=== PATIENT | female | born 1960 | race Caucasian/White ===

== ENCOUNTER 2022-07-26 06:08 | Inpatient (IN) ==
--- NOTE | 2022-07-07 15:53 | PAT Medication Instructions ---
Medication Instructions Date of Service July 07, 2022 Home Medications acetaminophen 500 mg tablet 500 mg PO BID PRN carvedilol 12.5 mg tablet 12.5 mg PO BID cholecalciferol (vitamin D3) 50 mcg (2,000 unit) capsule (Vitamin D3) 50 mcg PO QAM esomeprazole magnesium 40 mg capsule,delayed release (Nexium) 40 mg PO HS fluoxetine 40 mg capsule 40 mg PO QAM ibuprofen 200 mg tablet 200 - 400 mg PO TID PRN liraglutide 0.6 mg/0.1 mL (18 mg/3 mL) subcutaneous pen injector (Victoza 2-Griffin) 1.2 mg subcut QAM lisinopril 2.5 mg tablet 2.5 mg PO HS omega-3 fatty acids 1,000 mg PO QAM simvastatin 40 mg tablet 40 mg PO HS zinc 50 mg tablet 50 mg PO QAM Continue as directed liraglutide 0.6 mg/0.1 mL (18 mg/3 mL) subcutaneous pen injector (Victoza 2-Griffin) 1.2 mg subcut QAM ASK your surgeon for instructions ibuprofen 200 mg tablet 200 - 400 mg PO TID PRN STOP taking 2 weeks before surgery omega-3 fatty acids 1,000 mg PO QAM DO NOT take the morning of surgery cholecalciferol (vitamin D3) 50 mcg (2,000 unit) capsule (Vitamin D3) 50 mcg PO QAM zinc 50 mg tablet 50 mg PO QAM Take morning of surgery With a small sip of water, OTHERWISE NOTHING TO EAT OR DRINK AFTER MIDNIGHT: acetaminophen 500 mg tablet 500 mg PO BID PRN(if needed) carvedilol 12.5 mg tablet 12.5 mg PO BID fluoxetine 40 mg capsule 40 mg PO QAM Take evening before surgery acetaminophen 500 mg tablet 500 mg PO BID PRN(if needed) carvedilol 12.5 mg tablet 12.5 mg PO BID esomeprazole magnesium 40 mg capsule,delayed release (Nexium) 40 mg PO HS lisinopril 2.5 mg tablet 2.5 mg PO HS simvastatin 40 mg tablet 40 mg PO HS Other Notes If you have any questions please call us at [phone] or [phone] or or [phone]
--- NOTE | 2022-07-12 09:05 | Anesthesiology Consultation ---
Date of Service July 12, 2022 Assessment & Plan (1) Encounter for pre-operative examination: - COVID screening: Per assessment on 07/12: No known COVID-19 positive contacts or current COVID-19 related symptoms. Travel screen negative. Patient vaccinated. At surgeon discretion if preop Covid testing being done. - Check [facility] AM DOS Chart Review Chart Review: Acceptable Risk for Surgery and Patient seen in Pre Admission Testing Teaching & Discussion Pre-Anesthesia Teaching/Discussion Notes: Instructed NPO after midnight before surgery,except medications with 15 cc of water. Medication instructions provided according to the PAT guidelines. History Surgery Operation Date: 07/26/22 09:35 Proposed Procedures p L5-S1 Decompression and Fusion, Spinal Cord Monitoring - Art Richardson, Height/Weight Height: 5 ft 7 in Weight: 118.3 kg Allergies Allergy/AdvReac Type Severity Reaction Status Date / Time No Known Allergies Allergy Verified 07/01/22 15:08 Medications Home Medications Medication Instructions Recorded Confirmed Last Taken acetaminophen 500 mg tablet 500 mg PO BID PRN Pain 07/01/22 07/01/22 Unknown carvedilol 12.5 mg tablet 12.5 mg PO BID 07/01/22 07/01/22 Unknown cholecalciferol (vitamin D3) 50 50 mcg PO QAM 07/01/22 07/01/22 Unknown mcg (2,000 unit) capsule (Vitamin D3) esomeprazole magnesium 40 mg 40 mg PO HS 07/01/22 07/01/22 Unknown capsule,delayed release (Nexium) fluoxetine 40 mg capsule 40 mg PO QAM 07/01/22 07/01/22 Unknown ibuprofen 200 mg tablet 200 - 400 mg PO TID PRN Pain 07/01/22 07/01/22 Unknown liraglutide 0.6 mg/0.1 mL (18 mg/3 1.2 mg subcut QAM 07/01/22 07/01/22 Unknown mL) subcutaneous pen injector (Victoza 2-Griffin) lisinopril 2.5 mg tablet 2.5 mg PO HS 07/01/22 07/01/22 Unknown omega-3 fatty acids 1,000 mg PO QAM 07/01/22 07/01/22 Unknown simvastatin 40 mg tablet 40 mg PO HS 07/01/22 07/01/22 Unknown zinc 50 mg tablet 50 mg PO QAM 07/01/22 07/01/22 Unknown Past Medical History Medical History Anxiety Generalized Chronic back pain Chronic kidney disease Stage 2 - follows with [facility] Nephrology Degenerative disc disease Diabetes mellitus, type 2 NIDDM Fatty liver GERD (gastroesophageal reflux disease) History of COVID-19 04/2022 - loss of smell > resolved Hx of gastric ulcer Hyperlipidemia Hypertension Kidney stones MVP (mitral valve prolapse) Pt reports being told 15+ years ago (she states more recent cardiac testing did not show any valvular disease/regurgitation). No murmur noted at PAT visit 07/12/22* Sinus tachycardia Previously evaluated by cardio (Dr. Guthrie)- pt reports beta august is for HTN as well as hx ST. Now monitored by PCP, no recent issues, SR on recent EKG 05/26/22 Exercise / Class Metabolic Activity II 4-5 Yardwork/Stairs/Walk up hill (one FS (no CP, no SOB)) Past Family History Family History Other No family history of adverse response to anesthesia Past Surgical History Surgical History H/O lithotripsy ESWL (x2) History of cardiac cath ~2011 ([facility]) > no stents 5+ years ago (pt reports done at [facility] but no records of prior cardiac cath per facility) > no stents or significant findings per pt History of cholecystectomy History of colonoscopy History of esophagogastroduodenoscopy (EGD) History of total knee replacement bilateral Nausea and vomiting after administration of anesthetic agent S/P ear surgery BMT with bilateral ear patches ([facility] 04/2022) S/P epidural steroid injection S/P laparoscopic hysterectomy with BSO Past Anesthesia History No Hx of Anesthesia Complications (except PONV) and No Family Hx of Anesthesia Complications History of PONV History of PONV and Hx of Motion Sickness Social History Smoking Status: Former smoker tobacco type: cigarettes Smoking End Date: Quit 2005 Hx Alcohol Use: Yes alcohol intake frequency: holidays/special occasions only Hx Substance Use: No substance use type: does not use Review of Systems Remote hx of palpitations- well controlled on beta august. Patient denies chest pain, shortness of breath, dyspnea on exertion, fever, chills, cough, wheezing. Physical Exam Vital Signs VITALS BP 124/72 P 75 TEMP 98.3 SP02 96%RA RESP 16 PHYSICAL Full cervical extension range of motion. Full TMJ range of motion. TMD 4 finger breaths Mallampati Score 1 Dentition: full dentures upper/lower Lungs: clear throughout to auscultation Cardiac: regular rate and rhythm, no murmurs noted Spine: normal Carotid arteries: negative bruit Extremities: no edema Lab Results Anesthesia Preop Results Results Anesthesia Widget: WBC 7.05 K/ul (4.8-10.8) 07/12/22 Hgb 12.7 g/dl (12.0-16.0) 07/12/22 Hct 37.8 % (34.1-44.9) 07/12/22 Plt 174 K/uL (130-400) 07/12/22 Na 142 mmol/L (136-145) 07/12/22 K 4.0 mmol/L (3.5-5.1) 07/12/22 Cl 107 mmol/L (98-107) 07/12/22 CO2 30 mmol/L (21-32) 07/12/22 BUN 13 mg/dl (6-23) 07/12/22 Creat 0.78 mg/dl (0.6-1.2) 07/12/22 Glucose Level 101 mg/dl (70-99(Fasting)) H 07/12/22 PT 10.3 Seconds (9.0-12.0) 07/12/22 PTT 26.7 Seconds (21.0-31.0) 07/12/22 INR 1.0 (0.9-1.1) 07/12/22 HA1c 5.7 % (4.5-5.6) H 07/12/22 Urine Color Yellow 07/12/22 Urine Appearance Clear (Clear) 07/12/22 Urine pH 6.0 (4.5-7.5) 07/12/22 Urine Specific [place] 1.014 (1.000-1.030) 07/12/22 Urine Protein Negative (Negative) 07/12/22 Urine Glucose (UA) Negative (Negative) 07/12/22 Urine Ketones Negative (Negative) 07/12/22 Urine Blood Negative (Negative) 07/12/22 Urine Nitrite Negative (Negative) 07/12/22 Urine Bilirubin Negative (Negative) 07/12/22 Urine Urobilinogen Negative (Negative) 07/12/22 Urine Leukocyte Esterase Negative (Negative) 07/12/22 Blood Type A Positive 07/12/22 Antibody Screen NEGATIVE 07/12/22 Testing Electrocardiogram Date: 05/26/22 SR at 78bpm. Possible LAE. Chest X-Ray Date: 07/12/22 FINDINGS: Cardiomediastinal and hilar silhouettes are within normal limits. No pneumothorax, pleural effusion, airspace consolidation or overt pulmonary edema. Surgical clips of the upper abdomen. Degenerative changes of the shoulders and spine. IMPRESSION: No acute process. COVID-19 Risk Screen Screening Information COVID-19 Screen Date: 07/12/22 Exposure 21 Days Family/Household +COVID Last 21 Days: No Exposure 10 Days Any COVID Exposure Last 10 Days: No Symptoms Last 10 Days Experienced COVID Sx Last 10 Days: No + COVID 0-90 Days COVID + in Last 0-90 Days: No
[~2022-07-26 06:08] MED LIST: ACETAMINOPHEN 500 MG TAB PO SCH; CeleBREX 200 MG CAP PO SCH; GABAPENTIN 600 MG DOSE PO SCH; LR 15ML/HR IV SCH
[2022-07-26] MEDS ORDERED: MIDAZOLAM HCL 1 MG/ML 2ML VIAL ONE (06:57)
[2022-07-26] MEDS ORDERED: fentaNYL citrate 100 MCG/2 ML VIAL ONE (06:57)
[2022-07-26] MEDS ORDERED: DEXAMETHASONE SOD INJ 4 MG/ML VIAL ONE (06:57)
[2022-07-26] MEDS ORDERED: HYDROmorphone INJ 2 MG/ML SYR/VIAL ONE (06:57)
[2022-07-26] MEDS ORDERED: PROPOFOL IV EMULSION 10 MG/ML 20 ML VIAL IV ONE (06:57)
[2022-07-26] MEDS ORDERED: LIDOCAINE 2% 20 MG/ML 5 ML SYR IV ONE (06:57)
[2022-07-26] MEDS ORDERED: GLYCOPYRROLATE 0.2 MG/ML VIAL ONE (06:57)
[2022-07-26] MEDS ORDERED: NEOSTIGMINE METHYLSULFATE 1 MG/ML 10ML VIAL ONE (06:57)
[2022-07-26] MEDS ORDERED: ONDANSETRON INJ 2 MG/ML 2 ML VIAL ONE ×2 (06:57→11:07)
[2022-07-26] MEDS ORDERED: BUPIVACAINE/EPINEPHRINE 0.25% 1:200,000 30 ML VIAL ONE (07:21)
[2022-07-26] MEDS ORDERED: ceFAZolin 330 MG/ML 1 GM VIAL ONE (07:21)
--- NOTE | 2022-07-26 07:40 | History & Physical Bridge Note ---
Date of Service July 26, 2022 History & Physical Bridge Note I have examined the patient, reviewed the History & Physical and in the interval since the performance of the History & Physical I have noted the following changes of clinical significance: no changes noted
--- NOTE | 2022-07-26 07:41 | History & Physical Report ---
Date of Service July 26, 2022 Assessment & Plan (1) Neurogenic claudication due to lumbar spinal stenosis: Plan: L5-S1 decompression and fusion History of Present Illness Chief Complaint: Back and leg pain Primary Care Provider: Camilo Black DO This is a 62-year-old female presents with chronic persistent back and leg pain after failing course of nonoperative care is here for surgical invention. Allergies Allergy/AdvReac Type Severity Reaction Status Date / Time No Known Allergies Allergy Verified 07/26/22 06:27 Home Medications Medication Instructions Recorded Confirmed Type acetaminophen 500 mg tablet 500 mg PO BID PRN Pain 07/01/22 07/26/22 History carvedilol 12.5 mg tablet 12.5 mg PO BID 07/01/22 07/26/22 History cholecalciferol (vitamin D3) 50 50 mcg PO QAM 07/01/22 07/26/22 History mcg (2,000 unit) capsule (Vitamin D3) esomeprazole magnesium 40 mg 40 mg PO HS 07/01/22 07/26/22 History capsule,delayed release (Nexium) fluoxetine 40 mg capsule 40 mg PO QAM 07/01/22 07/26/22 History ibuprofen 200 mg tablet 200 - 400 mg PO TID PRN Pain 07/01/22 07/26/22 History liraglutide 0.6 mg/0.1 mL (18 mg/3 1.2 mg subcut QAM 07/01/22 07/26/22 History mL) subcutaneous pen injector (Victoza 2-Griffin) lisinopril 2.5 mg tablet 2.5 mg PO HS 07/01/22 07/26/22 History omega-3 fatty acids 1,000 mg PO QAM 07/01/22 07/26/22 History simvastatin 40 mg tablet 40 mg PO HS 07/01/22 07/26/22 History zinc 50 mg tablet 50 mg PO QAM 07/01/22 07/26/22 History Past Med/Surg History Medical History Anxiety Generalized Chronic back pain Chronic kidney disease Stage 2 - [facility] Degenerative disc disease Diabetes mellitus, type 2 NIDDM Fatty liver GERD (gastroesophageal reflux disease) History of COVID-19 04/2022 - loss of smell > resolved Hx of gastric ulcer Hyperlipidemia Hypertension Kidney stones MVP (mitral valve prolapse) Pt reports being told 15+ years ago (she states more recent cardiac testing did not show any valvular disease/regurgitation). No murmur noted at PAT visi t 07/12/22* Sinus tachycardia Previously evaluated by cardio (Dr. Guthrie)- pt reports beta august is for HTN as well as hx ST. Now monitored by PCP, no recent issues, SR on recent EKG 05/26/22 Surgical History H/O lithotripsy ESWL (x2) History of cardiac cath ~2011 ([facility]) > no stents 5+ years ago (pt reports done at [facility] but no records of prior cardiac cath per facility) > no stents or significant findings per pt History of cholecystectomy History of colonoscopy History of esophagogastroduodenoscopy (EGD) History of total knee replacement bilateral Nausea and vomiting after administration of anesthetic agent S/P ear surgery BMT with bilateral ear patches ([facility] 04/2022) S/P epidural steroid injection S/P laparoscopic hysterectomy with BSO Family History Other No family history of adverse response to anesthesia Social History Smoking Status: Former smoker Smoking End Date: Quit 2005; Second Hand Exposure: No; Tobacco Cessation Education Requested by Patient: No Hx Alcohol Use: Yes Hx Substance Use: No Preferred Language: Zimbabwean Communication Ability: Effective Grant Manager Required: No Beliefs That Will Affect Care: None Current Living Situation: Spouse Other Information That Helps Us Care for You: No Feels Safe at Home: Yes Safety Concerns: Feels Safe At This Time Assistive Devices: Denture - Upper and Denture - Lower Physical Exam Physical Exam: Patient is alert and oriented Heart regular rhythm Lungs clear Results & Data Results & Data ([facility]) Vital Signs (Past 12 Hours) Vital Signs Temp Pulse Resp BP Pulse Ox O2 Del Method 07/26/22 06:30 36.5 C 90 20 136/83 96 Room Air
[2022-07-26] MEDS ORDERED: HYDROmorphone INJ 2 MG/ML SYR/VIAL IV PRN (07:45)
[2022-07-26] MEDS ORDERED: PROMETHAZINE HCL 6.25 MG in SODIUM CHLORIDE 0.9% 50 ML IV PRN (07:45)
[2022-07-26] MEDS ORDERED: ONDANSETRON INJ 2 MG/ML 2 ML VIAL IV PRN ×2 (07:45→12:02)
[2022-07-26] MEDS ORDERED: ePHEDrine sulfate 50 MG/ML AMP IV PRN (07:45)
[2022-07-26] MEDS ORDERED: ATROPINE SULFATE 0.1 MG/ML 10ML SYR IV PRN (07:45)
[2022-07-26] MEDS ORDERED: PHENYLEPHRINE HCL 10 MG/ML VIAL ONE (09:29)
[2022-07-26] MEDS ORDERED: FLOSEAL HEMOSTATIC MATRIX 10ML TOP ONE (09:36)
--- NOTE | 2022-07-26 09:45 | Operative Report ---
Post Operative Report Pre & Post Diagnosis Operation Date: 07/26/22 07:45 Pre-Op Diagnosis: Neurogenic Claudication due to Lumbar Spinal Stenosis Spondylolisthesis L5-S1 Morbid obesity Post-Op Diagnosis: Same I identified the patient and participated in the time-out.: Yes Procedure Operation Date: 07/26/22 07:45 Actual Procedures #1 lumbar decompression bilateral medial facetectomies and foraminotomies L4-L5 L5-S1. #2 posterior spinal fusion L5-S1. #3 placement posterior instrumentation L5-S1. #4 interbody fusion L5-S1. #5 placement of Spira 14 x 26 mm cage at L5-S1. #6 placement locally harvested morselized autograft in the posterior gutters. #7 placement of I factor combined with V toss in interbody space and posterior lateral gutters. Surgeon Art Richardson, DO School Psychologist Mary Butler Estimated Blood Loss 100 Findings See Below The patient is 5 feet 7 inches tall weighing 117 kg with a BMI in excess of 40. The patient's body habitus did contribute to significant technical difficulty requiring her deepest retractors and longer instruments in order to perform her procedure. This at least 50% increased operative time. Specimens None Indications This is a 62-year-old female who presents above-mentioned diagnosis after failed extensive course of nonoperative care she is here for surgical invention. Description of Procedure Patient was met with identified informed consent obtained. Patient was then taken to the operative suite underwent a patient placed in a prone position on the León table atop the Malik frame. All bony prominences well-padded eyes inspected to ensure no external pressure placed upon the. This point lumbar spine was prepped and draped in a sterile fashion. Sharp dissection with the assistance of Bovie cautery was performed down to and exposing the lamina and transverse processes of L5 and the sacral ala bilaterally. From a caudal cephalad fashion complete laminectomy of L5 partial laminectomy L4 was performed including bilateral medial facetectomies and foraminotomies addressing severe spinal stenosis. Pedicle screws were then placed in L5 and S1 levels bilaterally with assistance of fluoroscopy and appropriately sized abhishek placed. By way the transforaminal approach and right complete discectomy was performed endplates curetted to subcortical bleeding bone and a 14 x 26 mm spiral cage with I factor tapped in position. The rods were then locked in final position bilaterally. The transverse processes of L5 and sacral ala burred to subcortical bleeding bone. I factor bone of the test and locally harvested morselized autograft was placed in the posterior lateral gutters. 15 round TASH drain inserted. The incision was then closed with 1 Vicryl the fascia 2-0 Vicryl subcutaneously and 4 Monocryl for final skin closure. Steri-Strip sterile dressings placed. Patient waken taken to PACU in stable condition. Please note spinal cord monitoring was utilized at the procedure no changes noted. Lastly Mary Butler was present at the entire surgery involved the patient positioning complex portions of the surgery and final skin closure. I attest to the content of the Intraoperative Record and any orders documented therein. Any exceptions are noted below.
--- NOTE | 2022-07-26 10:21 | Fluoroscopy Report ---
FL lumbar spine 2-3V HISTORY: 62 years-old Female L5-S1 DFI status post fusion of the lower lumbar spine COMPARISON: None TECHNIQUE: 2 spot fluoroscopic images of the lumbar spine were obtained utilizing 21.3 seconds fluoro scopy time FINDINGS: Posterior interbody abhishek and screw fusion with discectomy at L5-S1. The hardware appears intact. No ac [place] fracture, or malalignment. There is an apparent radiopaque sponge projected over the sacrum. IMPRESSION: Fluoroscopic assistance as above. ACT 112: Negative or not required by law. The above report was generated using voice recognition software. It may contain grammatical, syntax o r spelling errors. Electronically signed by: Donnie Santos M.D. 07/26/2022 10:20 AM
[2022-07-26] MEDS: fentaNYL citrate 100 MCG/2 ML VIAL IV PRN ×4 (10:53→11:15)
[2022-07-26] MEDS ORDERED: SOD PHOSPHATE/SOD BIPHOSPHATE ENEMA 132 ML BTL PR PRN (12:02)
[2022-07-26] MEDS ORDERED: FAMOTIDINE 20 MG TAB PO PRN (12:02)
[2022-07-26] MEDS ORDERED: traMADol HCL 50 MG TABLET PO PRN (12:02)
[2022-07-26] MEDS ORDERED: PROMETHAZINE HCL 12.5 MG in SODIUM CHLORIDE 0.9% 50 ML IV PRN (12:02)
[2022-07-26] MEDS ORDERED: METOCLOPRAMIDE HCL INJ 5 MG/ML 2 ML VIAL IV PRN (12:02)
[2022-07-26] MEDS ORDERED: bisacodyL 10 MG SUPP PR PRN (12:02)
[2022-07-26] MEDS ORDERED: NALOXONE HCL 0.4 MG/1 ML VIAL/CARP IV PRN (12:02)
[2022-07-26] MEDS ORDERED: ACETAMINOPHEN 1,000 MG/100 ML VIAL IV PRN (12:02)
[2022-07-26] MEDS ORDERED: PHARMACY GLYCEMIC MGMT CONSULT PRN (12:02)
[2022-07-26] MEDS ORDERED: HYDROmorphone INJ 0.5 MG/0.5 ML SYR IV PRN (12:02)
[2022-07-26] MEDS ORDERED: ACETAMINOPHEN 500 MG TAB PO PRN (12:02)
[2022-07-26] MEDS ORDERED: ALUMINUM/MAGNESIUM SUSP 30 ML UDC PO PRN (12:02)
[2022-07-26] MEDS ORDERED: LORazepam 0.5 MG in SYRINGE 0 ML IV PRN (12:02)
[2022-07-26] MEDS ORDERED: diphenhydrAMINE Capsule 25 MG CAP PO PRN (12:02)
[2022-07-26] MEDS ORDERED: ONDANSETRON 4 MG OD TAB PO PRN (12:02)
[2022-07-26] MEDS ORDERED: MAGNESIUM HYDROXIDE SUSP 30 ML UDC PO PRN (12:02)
[2022-07-26] MEDS ORDERED: hydrOXYzine HCl 25 MG TAB PO PRN (12:02)
[2022-07-26] MEDS ORDERED: LORazepam 0.5 MG TAB PO PRN (12:02)
[2022-07-26] MEDS: SODIUM CHLORIDE 0.9% 1000ML 1,000 ML IV SCH ×2 (13:08→19:15)
--- NOTE | 2022-07-26 13:39 | Hospitalist Consultation ---
Date of Consultation July 26, 2022 Assessment & Plan (1) Neurogenic claudication due to lumbar spinal stenosis: This is a 62yo F with a PMH of type 2 diabetes, anxiety, GERD, hyperlipidemia who is POD#0 s/p L5-S1 decompression and fusion by Dr. Richardson. POD#0 s/p L5-S1 decompression and fusion by Dr. Richardson. Per ortho for pain control, wound care, anticoagulation and activities Monitor H&H (pre-op hgb 12.7) Continue incentive spirometry, PT/OT when appropriate (2) Diabetes mellitus, type 2: A1c 5.7 in Jul 2022 Hold home agents SSI while in-patient Glycemic consult placed by primary service - expect higher BSGs during admission 2/2 scheduled Decadron BSG AC HS (3) Sinus tachycardia: (4) Hypertension: Stable, has followed with Dr. Guthrie. Continue carvedilol (5) Hyperlipidemia: Continue simvastatin (6) Anxiety: Continue Fluoxetine (7) GERD (gastroesophageal reflux disease): Continue PPI august PCP: Wayne ([facility]) Dispo: Per orthopedic service Patient seen in collaboration with Dr. Daniel. Please see addendum. Supervising Physician Co-Signing Physician Notes Pt was seen and examined. Agreed with Charito MIR exam, assessment and plan. 62yo F with a PMH of type 2 diabetes, anxiety, GERD, hyperlipidemia who failed outpatient medical management. S/P day#0 L5-S1 decompression and fusion by Dr. Richardson. No postop complication. Continue pain control. Continue incentive spirometry. Will monitor H&H. PT/OT as per Ortho. Will continue monitor closely. Fall precaution. MD Fredy History of Present Illness Reason for Consultation: Postoperative medical management Attending Physician: Art Richardson DO History of Present Illness This is a 62yo F with a PMH of type 2 diabetes, anxiety, GERD, hyperlipidemia who is POD#0 s/p L5-S1 decompression and fusion by Dr. Richardson. Patient is feeling well postoperatively. Has already ambulated to the restroom without issue. Some surgical site discomfort but denies any pain or paresthesias in bilateral lower extremities. Tolerated lunch without any nausea or vomiting. Denies any fever, chills, headache, chest pain, shortness of breath, abdominal pain, dysuria, diarrhea or constipation. Receives primary care through [facility] in [place]. Denies any recent medication changes other than holding fish oil and vitamin D 2 weeks prior. Allergies Allergy/AdvReac Type Severity Reaction Status Date / Time No Known Allergies Allergy Verified 07/26/22 06:27 Home Medications Medication Instructions Recorded Confirmed Type acetaminophen 500 mg tablet 500 mg PO BID PRN Pain 07/01/22 07/26/22 History carvedilol 12.5 mg tablet 12.5 mg PO BID 07/01/22 07/26/22 History cholecalciferol (vitamin D3) 50 50 mcg PO QAM 07/01/22 07/26/22 History mcg (2,000 unit) capsule (Vitamin D3) esomeprazole magnesium 40 mg 40 mg PO HS 07/01/22 07/26/22 History capsule,delayed release (Nexium) fluoxetine 40 mg capsule 40 mg PO QAM 07/01/22 07/26/22 History liraglutide 0.6 mg/0.1 mL (18 mg/3 1.2 mg subcut QAM 07/01/22 07/26/22 History mL) subcutaneous pen injector (Victoza 2-Griffin) lisinopril 2.5 mg tablet 2.5 mg PO HS 07/01/22 07/26/22 History omega-3 fatty acids 1,000 mg PO QAM 07/01/22 07/26/22 History simvastatin 40 mg tablet 40 mg PO HS 07/01/22 07/26/22 History zinc 50 mg tablet 50 mg PO QAM 07/01/22 07/26/22 History lidocaine 5 % topical patch 1 patch transdermal DAILY 07/26/22 07/26/22 History (Lidoderm) oxycodone 5 mg tablet 5 mg PO Q6H PRN pain, severe #30 07/28/22 Rx tabs tramadol 50 mg tablet 50 mg PO Q6H PRN pain, moderate 07/28/22 Rx #30 tabs Patient History Medical History Anxiety Generalized Chronic back pain Chronic kidney disease Stage 2 - follows with [facility] Degenerative disc disease Diabetes mellitus, type 2 NIDDM Fatty liver GERD (gastroesophageal reflux disease) History of COVID-19 04/2022 - loss of smell > resolved Hx of gastric ulcer Hyperlipidemia Hypertension Kidney stones MVP (mitral valve prolapse) Pt reports being told 15+ years ago (she states more recent cardiac testing did not show any valvular disease/regurgitation). No murmur noted at PAT visit 07/12/22* Sinus tachycardia Previously evaluated by cardio (Dr. Guthrie)- pt reports beta august is for HTN as well as hx ST. Now monitored by PCP, no recent issues, SR on recent EKG 05/26/22 Surgical History H/O lithotripsy ESWL (x2) History of cardiac cath ~2011 ([facility]) > no stents 5+ years ago (pt reports done at [facility] but no records of prior cardiac cath per facility) > no stents or significant findings per pt History of cholecystectomy History of colonoscopy History of esophagogastroduodenoscopy (EGD) History of total knee replacement bilateral Nausea and vomiting after administration of anesthetic agent S/P ear surgery BMT with bilateral ear patches ([facility] [place] 04/2022) S/P epidural steroid injection S/P laparoscopic hysterectomy with BSO Family History Other Hypertension No family history of adverse response to anesthesia Social History (Updated 07/26/22 @ 14:59 by Charito Renner PA-C) Smoking Status: Former smoker Smoking End Date: Quit 2005; Second Hand Exposure: No; Tobacco Cessation Education Requested by Patient: No Hx Alcohol Use: Yes Alcohol Intake Frequency: Monthly or Less Hx Substance Use: No Preferred Language: Pashto Communication Ability: Effective [place] Required: No Beliefs That Will Affect Care: None marital status: Current Living Situation: Spouse How many Children do You have: 1 Other Information That Helps Us Care for You: No Feels Safe at Home: Yes Safety Concerns: Feels Safe At This Time Assistive Devices: Denture - Upper and Denture - Lower Review of Systems Review of Systems: At least ten systems reviewed and negative except as noted in the HPI. Physical Exam Physical Exam: General Appearance: WD/WN, vitals as above, NAD, lying in bed, pleasant, conversing easily Head: normocephalic, atraumatic Eyes: normal inspection, PERRL ENT: external ear and nose normal, oropharynx normal Neck: normal visual inspection, trachea midline, no thyromegaly Respiratory: normal respiratory effort, lungs clear to auscultation, no wheeze, rales, rhonchi. No accessory muscle use Cardiovascular: regular rate, rhythm, no murmur, normal peripheral pulses, no BLE edema Abdomen/GI: normal bowel sounds, soft, nontender, no hepatosplenomegaly Extremities/Musculoskeletal: +Spinal dressing c/d/i. No cyanosis or clubbing, extremities motor strength 5/5. + SCDs Neurologic: PERRL, no dysarthria, CN's II-XI intact bilaterally and moves all extremities Psychiatric: A+Ox3, euthymic affect Skin: no rashes, normal color, warm/dry Results & Data Results & Data ([facility]) Vital Signs (Past 12 Hours) Vital Signs Temp Pulse Pulse Resp BP Pulse Ox O2 Del Method 07/26/22 13:23 36.8 C 82 16 101/61 95 Nasal Cannula 07/26/22 12:45 36.7 C 81 16 117/68 95 Nasal Cannula 07/26/22 12:05 92 H 16 133/64 94 Nasal Cannula 07/26/22 11:05 36.7 C 74 16 120/66 100 Nasal Cannula 07/26/22 11:35 36.7 C 94 H 18 148/83 H 98 Nasal Cannula 07/26/22 11:25 36.7 C 78 8 L 143/73 H 100 Nasal Cannula 07/26/22 11:15 36.7 C 69 8 L 118/80 93 Nasal Cannula 07/26/22 10:55 36.7 C 88 14 128/77 93 Nasal Cannula 07/26/22 10:15 83 17 152/81 H 97 Oxymask 07/26/22 10:45 36.7 C 87 18 125/72 94 Nasal Cannula 07/26/22 10:35 36.7 C 85 79 H 129/77 95 Nasal Cannula 07/26/22 10:25 85 23 137/88 96 Oxymask 07/26/22 10:05 87 18 158/90 H 94 Oxymask 07/26/22 09:58 36.7 C 90 18 140/78 95 Oxymask 07/26/22 06:30 36.5 C 90 20 136/83 96 Room Air O2 Flow Rate 07/26/22 13:23 1 07/26/22 12:45 3 07/26/22 12:05 3 07/26/22 11:05 3 07/26/22 11:35 3 07/26/22 11:25 3 07/26/22 11:15 3 07/26/22 10:55 3 07/26/22 10:15 3 07/26/22 10:45 3 07/26/22 10:35 3 07/26/22 10:25 3 07/26/22 10:05 4 07/26/22 09:58 5 07/26/22 06:30
[2022-07-26] MEDS: oxyCODONE HCL IR 5 MG TAB (IMMEDIATE RELEASE) PO PRN ×4 (14:02→23:09)
[2022-07-26] MEDS ORDERED: LANTUS PER UNIT CHARGE SQ ONE ×2 (14:15→21:00)
--- NOTE | 2022-07-26 14:19 | Pharmacy Report ---
Pharmacy Glycemic Short Note 2 - Date of Service July 26, 2022 - Glycemic Short BSG Results (Last 24 hours): 07/26/22 07/26/22 07/26/22 06:26 10:00 12:06 POC Glucose 132 H 169 H 179 H 07/26/22 13:01 POC Glucose 149 H OUTPATIENT ANTIDIABETIC REGIMEN: * VICTOZA 1.2 MG QAM * A1c 5.7% 07/12/22 ASSESSMENT: * Patient admitted following spinal surgery, POD #0, dexamethasone given and scheduled daily, T2DM diet * A1c indicates good control outpatient. Will give 1x dose of lantus and scale for PM if needed * Will start with weight based stress of 2 novolog- will monitor for changes. Overnight checks PLAN FOR INPATIENT GLYCEMIC CONTROL: * Hold outpatient oral diabetes medications * Basal insulin * Lantus 20 units x 1 now, scale 0/10/20 per scale * Bolus insulin * NovoLog per scale ACHS or Q6hrs while NPO * Goal Range: Low 110 mg/dL - High 140 mg/dL * Correction Factor: 20 mg/dL/unit * Nutritional / Prandial insulin per carb ratio of 1 unit per 7 grams CHO consumed
--- NOTE | 2022-07-26 16:13 | Anesthesiology Progress Note ---
Date of Service July 26, 2022 Anesthesia Post Procedure Vital Signs Vital Signs: Temp Pulse Pulse Resp BP Pulse Ox O2 Del Method 07/26/22 15:45 36.9 C 100 H 16 115/73 92 Room Air 07/26/22 15:12 37.3 C 98 H 16 133/78 91 Room Air 07/26/22 13:50 36.8 C 106 H 16 110/68 92 Room Air 07/26/22 13:23 36.8 C 82 16 101/61 95 Nasal Cannula 07/26/22 12:45 36.7 C 81 16 117/68 95 Nasal Cannula 07/26/22 12:05 92 H 16 133/64 94 Nasal Cannula 07/26/22 11:05 36.7 C 74 16 120/66 100 Nasal Cannula 07/26/22 11:35 36.7 C 94 H 18 148/83 H 98 Nasal Cannula 07/26/22 11:25 36.7 C 78 8 L 143/73 H 100 Nasal Cannula 07/26/22 11:15 36.7 C 69 8 L 118/80 93 Nasal Cannula 07/26/22 10:55 36.7 C 88 14 128/77 93 Nasal Cannula 07/26/22 10:15 83 17 152/81 H 97 Oxymask 07/26/22 10:45 36.7 C 87 18 125/72 94 Nasal Cannula 07/26/22 10:35 36.7 C 85 79 H 129/77 95 Nasal Cannula 07/26/22 10:25 85 23 137/88 96 Oxymask 07/26/22 10:05 87 18 158/90 H 94 Oxymask 07/26/22 09:58 36.7 C 90 18 140/78 95 Oxymask 07/26/22 06:30 36.5 C 90 20 136/83 96 Room Air O2 Flow Rate 07/26/22 15:45 07/26/22 15:12 07/26/22 13:50 07/26/22 13:23 1 07/26/22 12:45 3 07/26/22 12:05 3 07/26/22 11:05 3 07/26/22 11:35 3 07/26/22 11:25 3 07/26/22 11:15 3 07/26/22 10:55 3 07/26/22 10:15 3 07/26/22 10:45 3 07/26/22 10:35 3 07/26/22 10:25 3 07/26/22 10:05 4 07/26/22 09:58 5 07/26/22 06:30 Pain Intensity Lower Back: Pain Intensity: 4 Transfer of Care Handoff Completed per policy Notes Mental Status: alert / awake / arousable Patient Amnestic to Procedure: Yes Nausea / Vomiting: adequately controlled Pain: adequately controlled Airway Patency, RR, SpO2: stable & adequate BP & HR: stable & adequate Hydration State: stable & adequate Anesthetic Complications: no major complications apparent
[2022-07-26] MEDS: INSULIN ASPART PER UNIT SC SCH ×3 (16:16→20:43)
[2022-07-26] MEDS: ceFAZolin 2000MG 2,000 MG/15 ML SYR IV SCH ×2 (19:13→23:20)
[2022-07-26] MEDS: DOCUSATE SODIUM/SENNA 50/8.6MG TAB PO SCH (20:42)
[2022-07-26] MEDS: carvediloL 12.5 MG TAB PO SCH (20:43)
[2022-07-26] MEDS: PANTOprazole 40 MG TAB PO SCH (20:43)
[2022-07-26] MEDS: SIMVASTATIN 40 MG TAB PO SCH (20:43)
[2022-07-26] MEDS: lisinopril 2.5 MG TAB PO SCH (20:43)
[2022-07-26] MEDS: HYDROmorphone INJ 1 MG/ML SYRINGE IV PRN (20:57)
[2022-07-26] MEDS ORDERED: COUGH DROP (SUGAR FREE) LOZ 24 LOZ/1 BOX BUCCAL ONE (23:06)
[2022-07-27] MEDS: INSULIN ASPART PER UNIT SC SCH ×6 (02:04→20:54)
[2022-07-27] MEDS: HYDROmorphone INJ 1 MG/ML SYRINGE IV PRN (02:40)
[2022-07-27] MEDS: SODIUM CHLORIDE 0.9% 1000ML 1,000 ML IV SCH (02:41)
[2022-07-27] MEDS: POLYETHYLENE (MIRALAX) 17 GM PACK PO SCH ×3 (05:26→18:22)
[2022-07-27 07:35] LABS: Basophils # (auto) 0.02 K/uL (0-0.2); Basophils % (auto) 0.2 %; Eosinophils # (auto) 0.08 K/uL (0-0.50); Eosinophils % (auto) 0.9 %; Hemoglobin 10.2 g/dl (12.0-16.0); Immature Granulocytes # (auto) 0.04 K/uL (0.00-0.02); Immature Granulocytes % (auto) 0.4 %; Lymphocytes # (auto) 1.73 K/uL (1.2-3.4); Lymphocytes % (auto) 19.3 %; Mean Corpuscular Hemoglobin 30.4 pg (25.0-34.0); Mean Corpuscular Hgb Conc 32.9 g/dL (32.0-36.0); Mean Corpuscular Volume 92.5 fL (80.0-100.0); Mean Platelet Volume 8.3 fL (9.4-12.3); Monocytes # (auto) 0.65 K/uL (0.24-0.82); Monocytes % (auto) 7.2 %; Neutrophils # (auto) 6.46 K/uL (1.4-6.5); Platelet Count 140 K/uL (130-400); RDW Coefficient of Variation 13.2 % (11.5-14.5); RDW Standard Deviation 44.5 fL (36.4-46.3); Red Blood Count 3.35 M/uL (3.93-5.22); White Blood Count 8.98 K/ul (4.8-10.8)
[2022-07-27] MEDS: oxyCODONE HCL IR 5 MG TAB (IMMEDIATE RELEASE) PO PRN ×3 (07:49→20:54)
[2022-07-27 07:57] LABS: BUN Creatinine Ratio 16.2 (10-20); Calcium 8.2 mg/dl (8.5-10.1); Est GFR (African American) 107.9 ml/min; Est GFR (Non-African American) 93.1 ml/min; Potassium 3.9 mmol/L (3.5-5.1)
--- NOTE | 2022-07-27 08:33 | Orthopedic Progress Note ---
Date of Service July 27, 2022 Assessment & Plan (1) Neurogenic claudication due to lumbar spinal stenosis: Plan: Krista is postop day 1 status post TLIF L5-S1. She will start physical therapy today. Continue with pain control. Maintain TASH drain. DVT prophylaxis is in the form of teds and SCDs. Continue aggressive bowel regimen. Anticipate discharge home within the next 24 to 48 hours. Admission and Anticipated Discharge Date Admission Date: July 26, 2022 Subjective Krista is postoperative day 1 status post TLIF L5-S1. She had an uneventful evening. Has complaints of lower back pain. Leg numbness greatly improved. H&H is morning are 10.2 and 31.0 respectively. TASH drain output last shift was 40 cc. Review of Systems Review of Systems: All systems reviewed & are unremarkable except as noted in HPI & below Physical Exam Physical Exam: She sitting up in bed in no acute distress Alert and oriented x3 lumbar dressing is clean dry intact with functioning TASH drain calf soft nontender bilaterally Strength intact bilateral lower extremities Results & Data ([facility]) Vital Signs (Past 12 Hours) Vital Signs Temp Pulse Resp BP BP Pulse Ox O2 Del Method 07/27/22 08:04 36.9 C 80 20 98/61 L 93 Room Air 07/27/22 02:32 36.9 C 85 16 103/56 L 90 Room Air 07/26/22 23:18 36.8 C 81 18 119/73 94 Room Air
[2022-07-27] MEDS ORDERED: NON-FORMULARY MEDICATION (Liraglutide [Victoza 2-Pak] 0.6 mg/0.1 mL (18 mg/3 mL) Pen Injec SQ SCH (09:00)
[2022-07-27] MEDS: dexAMETHasone 6 MG in SYRINGE 0 ML IV SCH (09:09)
[2022-07-27] MEDS: ZINC SULFATE 220 MG CAPSULE PO SCH (09:10)
[2022-07-27] MEDS: CHOLECALCIFEROL 1,000 UNITS 25 MCG TAB PO SCH (09:10)
[2022-07-27] MEDS: FLUoxetine HCL 20 MG CAP PO SCH (09:10)
[2022-07-27] MEDS: carvediloL 12.5 MG TAB PO SCH ×2 (09:12→20:42)
[2022-07-27] MEDS: LANTUS PER UNIT CHARGE SQ SCH ×2 (09:23→20:54)
[2022-07-27] MEDS: ACETAMINOPHEN 500 MG TAB PO SCH ×2 (15:17→20:44)
--- NOTE | 2022-07-27 15:34 | Hospitalist Progress Note ---
Date of Service July 27, 2022 Assessment & Plan (1) Neurogenic claudication due to lumbar spinal stenosis: Plan: 62yo F with a PMH of type 2 diabetes, anxiety, GERD, hyperlipidemia who is POD#0 s/p L5-S1 decompression and fusion by Dr. Richardson. POD#1 s/p L5-S1 decompression and fusion by Dr. Richardson. Hb is 10.2 (pre-op hgb 12.7) Post anemia likely from blood loss + dilutional Pain control Make tylenol scheduled for now. Continue prn oxycodone Continue incentive spirometry Continue PT/OT (2) Diabetes mellitus, type 2: Plan: A1c 5.7 in Jul 2022 Hold home agents SSI while in-patient BSG AC HS (3) Sinus tachycardia: (4) Hypertension: Plan: BP was 98/61 this AM and home antihypertensives held for now (5) Hyperlipidemia: Plan: Continue simvastatin (6) Anxiety: Plan: Continue Fluoxetine (7) GERD (gastroesophageal reflux disease): Plan: Continue PPI august PCP: Wayne ([facility]) Dispo: Per orthopedic service Admission and Anticipated Discharge Date Admission Date: July 26, 2022 Subjective Patient seen and examined. Patient reports pain at surgical site. Reported no numbness with ambulation around the dillard today which is a relief for her. Denies any chest pain, cough, shortness of breath Denies any nausea, vomiting, abdominal pain. Patient is yet to have a bowel movement but has been passing flatus. Denies any fevers, chills Denies any dysuria, frequency or urgency Physical Exam Constitutional: + well hydrated; no acute distress Eyes: PERRL, conjunctivae normal, anicteric sclerae ENMT: external ear and nose normal, oropharynx normal Respiratory: normal respiratory effort, lungs clear to auscultation Cardiovascular: Rate/Rhythm: regular rate and regular rhythm S1 S2 Gastrointestinal (Abdomen): normal bowel sounds, soft, nontender, no hepatosplenomegaly Musculoskeletal: Clean dressing over lower back with drain in situ Neurologic: PERRL, EOMI, accommodation nl, no face palsy, no dysarthria Psychiatric: A+Ox3, euthymic affect Results & Data Results & Data ([facility]) Vital Signs (Past 12 Hours) Vital Signs Temp Pulse Resp BP BP Pulse Ox O2 Del Method 07/27/22 14:35 36.6 C 89 18 117/61 93 Room Air 07/27/22 08:04 36.9 C 80 20 98/61 L 93 Room Air 07/27/22 09:12 80 97/62 L 94 Room Air Laboratory Results Abnormal lab results 07/26/22 07/26/22 07/27/22 Range/Units 17:14 20:37 00:15 RBC (3.93-5.22) M/uL Hgb (12.0-16.0) g/dl Hct (34.1-44.9) % MPV (9.4-12.3) fL Immature Gran # (Auto) (0.00-0.02) K/uL Glucose (70-99(Fasting)) mg/dl POC Glucose 140 H 127 H 134 H (70-99) mg/dl Calcium (8.5-10.1) mg/dl 07/27/22 07/27/22 07/27/22 Range/Units 05:12 07:13 07:13 RBC 3.35 L (3.93-5.22) M/uL Hgb 10.2 L (12.0-16.0) g/dl Hct 31.0 L (34.1-44.9) % MPV 8.3 L (9.4-12.3) fL Immature Gran # (Auto) 0.04 H (0.00-0.02) K/uL Glucose 131 H (70-99(Fasting)) mg/dl POC Glucose 132 H (70-99) mg/dl Calcium 8.2 L (8.5-10.1) mg/dl 07/27/22 Range/Units 11:58 RBC (3.93-5.22) M/uL Hgb (12.0-16.0) g/dl Hct (34.1-44.9) % MPV (9.4-12.3) fL Immature Gran # (Auto) (0.00-0.02) K/uL Glucose (70-99(Fasting)) mg/dl POC Glucose 135 H (70-99) mg/dl Calcium (8.5-10.1) mg/dl
[2022-07-27] MEDS: lisinopril 2.5 MG TAB PO SCH (20:42)
[2022-07-27] MEDS: SIMVASTATIN 40 MG TAB PO SCH (20:42)
[2022-07-27] MEDS: PANTOprazole 40 MG TAB PO SCH (20:42)
[2022-07-27] MEDS: DOCUSATE SODIUM/SENNA 50/8.6MG TAB PO SCH (20:42)
[2022-07-28] MEDS: POLYETHYLENE (MIRALAX) 17 GM PACK PO SCH ×5 (01:28→18:23)
[2022-07-28] MEDS: ACETAMINOPHEN 500 MG TAB PO SCH ×3 (05:38→21:24)
[2022-07-28] MEDS: oxyCODONE HCL IR 5 MG TAB (IMMEDIATE RELEASE) PO PRN ×2 (07:24→19:40)
[2022-07-28 07:37] LABS: Hematocrit (blood only) 30.1 % (34.1-44.9); Mean Corpuscular Hemoglobin 30.3 pg (25.0-34.0); Mean Corpuscular Hgb Conc 33.2 g/dL (32.0-36.0); Mean Corpuscular Volume 91.2 fL (80.0-100.0); Mean Platelet Volume 8.8 fL (9.4-12.3); Platelet Count 145 K/uL (130-400); RDW Coefficient of Variation 13.1 % (11.5-14.5); RDW Standard Deviation 43.4 fL (36.4-46.3); White Blood Count 9.45 K/ul (4.8-10.8)
[2022-07-28 08:08] LABS: BUN Creatinine Ratio 24.2 (10-20); Calcium 8.3 mg/dl (8.5-10.1); Creatinine Clr Calc Pharmacy 115.4 ml/min; Potassium 3.9 mmol/L (3.5-5.1)
[2022-07-28] MEDS: ZINC SULFATE 220 MG CAPSULE PO SCH (08:56)
[2022-07-28] MEDS: dexAMETHasone 6 MG in SYRINGE 0 ML IV SCH (08:56)
[2022-07-28] MEDS: FLUoxetine HCL 20 MG CAP PO SCH (08:56)
[2022-07-28] MEDS: CHOLECALCIFEROL 1,000 UNITS 25 MCG TAB PO SCH (08:56)
[2022-07-28] MEDS: carvediloL 12.5 MG TAB PO SCH ×2 (08:57→21:23)
[2022-07-28] MEDS: INSULIN ASPART PER UNIT SC SCH ×4 (09:06→21:28)
[2022-07-28] MEDS: LANTUS PER UNIT CHARGE SQ SCH ×2 (09:06→21:29)
--- NOTE | 2022-07-28 11:02 | Hospitalist Progress Note ---
Date of Service July 28, 2022 Assessment & Plan (1) Neurogenic claudication due to lumbar spinal stenosis: Plan: 62yo F with a PMH of type 2 diabetes, anxiety, GERD, hyperlipidemia who is POD#0 s/p L5-S1 decompression and fusion by Dr. Richardson. POD#2 s/p L5-S1 decompression and fusion by Dr. Richardson. Hb is stable in 10s (pre-op hgb 12.7) Post anemia likely from blood loss + dilutional Continue pain regimen Continue incentive spirometry Continue PT/OT Continue bowel regimen (2) Diabetes mellitus, type 2: Plan: A1c 5.7 in Jul 2022 Hold home agents SSI while in-patient BSG AC HS (3) Sinus tachycardia: (4) Hypertension: Plan: Controlled Continue home regimen (5) Hyperlipidemia: Plan: Continue simvastatin (6) Anxiety: Plan: Continue Fluoxetine (7) GERD (gastroesophageal reflux disease): Plan: Continue PPI august PCP: Wayne ([facility]) Dispo: Per orthopedic service Admission and Anticipated Discharge Date Admission Date: July 26, 2022 Subjective Patient seen and examined. Patient reports pain at surgical site Denies any chest pain, cough, shortness of breath Denies any nausea, vomiting, abdominal pain. Yet to have a bowel movement but has been passing flatus. Denies any fevers, chills Denies any dysuria, frequency or urgency Physical Exam Constitutional: + well hydrated; no acute distress Eyes: PERRL, conjunctivae normal, anicteric sclerae ENMT: external ear and nose normal, oropharynx normal Respiratory: normal respiratory effort, lungs clear to auscultation Cardiovascular: Rate/Rhythm: regular rate and regular rhythm S1 S2 Gastrointestinal (Abdomen): normal bowel sounds, soft, nontender, no hepatosplenomegaly Musculoskeletal: Clean dressing over lower back with drain in situ Neurologic: PERRL, EOMI, accommodation nl, no face palsy, no dysarthria Psychiatric: A+Ox3, euthymic affect Results & Data Results & Data ([facility]) Vital Signs (Past 12 Hours) Vital Signs Temp Pulse Resp BP Pulse Ox O2 Del Method 07/28/22 07:03 36.6 C 66 18 111/72 95 Room Air
--- NOTE | 2022-07-28 11:08 | Orthopedic Progress Note ---
Date of Service July 28, 2022 Assessment & Plan (1) Neurogenic claudication due to lumbar spinal stenosis: Plan: At this time we will continue physical therapy monitor TASH operatively discharge home tomorrow morning. Admission and Anticipated Discharge Date Admission Date: July 26, 2022 Subjective Back pain controlled leg symptoms markedly improved Physical Exam Physical Exam: Patient is in the chair at the bedside. Is constricted testing. Patient comfortable. Results & Data ([facility]) Vital Signs (Past 12 Hours) Vital Signs Temp Pulse Resp BP Pulse Ox O2 Del Method 07/28/22 07:03 36.6 C 66 18 111/72 95 Room Air
[2022-07-28] MEDS: lisinopril 2.5 MG TAB PO SCH (21:23)
[2022-07-28] MEDS: SIMVASTATIN 40 MG TAB PO SCH (21:23)
[2022-07-28] MEDS: DOCUSATE SODIUM/SENNA 50/8.6MG TAB PO SCH (21:23)
[2022-07-28] MEDS: PANTOprazole 40 MG TAB PO SCH (21:31)
[2022-07-29] MEDS: POLYETHYLENE (MIRALAX) 17 GM PACK PO SCH ×2 (00:03→06:02)
[2022-07-29] MEDS: ACETAMINOPHEN 500 MG TAB PO SCH (06:02)
[2022-07-29] MEDS: carvediloL 12.5 MG TAB PO SCH (09:02)
[2022-07-29] MEDS: ZINC SULFATE 220 MG CAPSULE PO SCH (09:02)
[2022-07-29] MEDS: FLUoxetine HCL 20 MG CAP PO SCH (09:02)
[2022-07-29] MEDS: CHOLECALCIFEROL 1,000 UNITS 25 MCG TAB PO SCH (09:03)
[2022-07-29] MEDS: dexAMETHasone 6 MG in SYRINGE 0 ML IV SCH (09:03)
[2022-07-29] MEDS: LANTUS PER UNIT CHARGE SQ SCH (09:13)
[2022-07-29] MEDS: INSULIN ASPART PER UNIT SC SCH (09:13)
--- NOTE | 2022-07-29 09:19 | Discharge Summary ---
Date of Service July 29, 2022 Admission HPI Per Admitting Provider This is a 62-year-old female presents with chronic persistent back and leg pain after failing course of nonoperative care is here for surgical invention. Principal Diagnosis Lumbar spinal stenosis with neurogenic claudication Discharge Data Allergies Allergy/AdvReac Type Severity Reaction Status Date / Time No Known Allergies Allergy Verified 07/26/22 06:27 Consultations 07/26/22 12:02 Consult Hospitalist Routine Procedures Performed Operation Date: 07/26/22 07:45 Actual Procedures p L5-S1 Decompression and Fusion, Spinal Cord Monitoring(Not Applicable) - Art Richardson DO Ordered Studies 07/26/22 07:45 [place] lumbar spine 2-3V Routine Hospital Course (1) Neurogenic claudication due to lumbar spinal stenosis: Patient with lumbar decompression fusion tolerated this well was taken to orthopedic for postoperative. Postop day 1 she was up and ambulating progressed to postop day #2 on postop day #3 TASH drain reduced appropriately. Extra strength testing. Very comfortable. Separately discharged home per discharge orders and instructions from the chart for further review. Total Time Total Time Spent Total Time Spent (In Minutes): 20 minutes Discharge Plan Discharge Items Patient Disposition: Home - Self-Care Reason For Visit: Spinal Stenosis, Lumbar Region without Neurogenic Discharge Diagnosis: Lumbar spinal stenosis with neurogenic claudication Activity: As commented below Non-emergency contact: Primary Care Provider Call non-emergency contact if: you have any medication questions Follow-up/Referrals: Camilo Black DO [Primary Care Provider] - Diet: Regular Addtl Attending Provider Instructions: ACTIVITY RECOMMENDATIONS: SELF CARE INSTRUCTIONS AFTER THORACIC/LUMBAR FUSIONS 1. You may walk to your tolerance. It is good exercise for your legs and back. Expect some back and intermittent leg aches and pains. 2. You may perform "counter-top" level activities (make a sandwich, adrian with a project, etc.). 3. No bending or lifting of more than 10 pounds or back twisting of any nature (roll like a log when turning in bed). 4. You may ride in a car for 20-30 minutes at a time. No driving until after your first visit with your doctor. 5. Frequent changes of position and restricting sitting to 30 minutes at a time will help limit the amount of back spasms and stiffness you may experience. 6. You may discontinue the use of ambulatory aids (cane, crutches, etc.) once your strength and confidence allow. 7. You may leather finisher the shower and let water strike your incision when you arrive home at least once daily. Do not take a tub bath, sit in a hot tub or go into a swimming pool until after your first recheck in the office. SPECIAL CARE INSTRUCTIONS: VERY IMPORTANT TO READ AND REVIEW A. Your surgical incision has been closed with a cosmetic suture under the skin that will dissolve in about 6 weeks. In 14 days, you can use a pair of clean scissors and cut the suture that is left outside of the skin at the ends of your incision. 1. The small skin tapes can be removed 7 days after surgery if they have not fallen off by that point. 2. You may keep the wound open to air as much as possible to promote healing after post-op day number 5 unless told otherwise by your doctor. 3. If you think the wound looks like it is becoming infected (redness or worsening drainage) and/or you are experiencing fever, chill or worsening back pain and muscle spasms, contact the office so that we may evaluate you as soon as possible. B. Complications are uncommon, but please contact us if you have any signs or symptoms of: 1. wound infection (fever higher than 102.5 degrees F, redness, separation of wound, drainage, or increasing pain from the incision) 2. blood clots in legs (pain, swelling, redness and warmth in legs) 3. urinary tract infection (fever higher than 102.5 degrees F, burning upon urination or increased frequency of urination) 4. nerve problems (inability to walk on your toes or heels, numbness, loss of bowel or bladder control) 5. any other symptoms that concern you C. Please call the office at if you have any concerns or questions about your operation or recovery. D. No smoking! Smoking drastically decreases the chance of a solid fusion. E. Do not take any anti-inflammatory medications (Indocin, Advil, Motrin, Aspirin, Naprosyn, etc.) as these may inhibit the chance of a solid fusion. Tylenol is okay to take for pain. MANAGING PAIN AFTER SPINAL SURGERY 1. Narcotic medication is intended for short-term use and will be provided for surgical pain. Surgical pain usually lasts for a period of 4-6 weeks. Narcotic medication includes Percocet, Vicodin, Darvocet, Tylenol #3 or Lortab. 2. Longer-term pain is more appropriately treated with non-narcotic medication such as Tylenol ES. 3. Muscle spasm is not appropriately treated with narcotics. Muscle relaxers such as Soma, Flexeril or Skelaxin can be used along with Tylenol ES. 4. Remember that we all live with some "aches and pains". This is not unusual or uncommon after an injury or as we get older. a. Back pain is expected and may include muscle spasms for 4 to 6 weeks after surgery. The pain should gradually improve. If the pain worsens for no apparent reason, please contact the office. b. Intermittent leg pain may also be experienced and should not be concerned about unless it worsens for no apparent reason. If so, please contact the office. 5. We will provide appropriate medication within the normal guidelines of their prescribed use. We will also be very cautious and aware of potential abuse and extended duration of patients' medication needs. a. Pain medications are for your comfort and to assist with sleep and rest so that the tissue can heal. They are not provided in order to return to normal activity and should not be used through the day. To do so or worsening pain at night can result from ongoing tissue damage and development of tolerance to the prescribed medicine. 6. Please allow 2-3 days to process refills. Prescriptions will not be mailed but must be picked up at the office. FOLLOW UP VISIT: Keep your scheduled follow-up appointment. Any questions, please call the office at . Pending Studies at Discharge: No Stand-Alone Forms: My [facility] [email or web address], Smoking Cessation Medications and DC Order Prescriptions: New tramadol 50 mg tablet 50 mg PO Q6H PRN (Reason: pain, moderate) Qty: 30 0RF oxycodone 5 mg tablet 5 mg PO Q6H PRN (Reason: pain, severe) Qty: 30 0RF Continued fluoxetine 40 mg Capsule 40 mg PO QAM carvedilol 12.5 mg Tablet 12.5 mg PO BID Rx Instructions: must administer with a meal/food simvastatin 40 mg Tablet 40 mg PO HS esomeprazole magnesium [Nexium] 40 mg Capsule,Delayed Release(Dr/Ec) 40 mg PO HS zinc 50 mg Tablet 50 mg PO QAM lisinopril 2.5 mg Tablet 2.5 mg PO HS omega-3 fatty acids Capsule 1,000 mg PO QAM cholecalciferol (vitamin D3) [Vitamin D3] 50 mcg (2,000 unit) Capsule 50 mcg PO QAM acetaminophen 500 mg Tablet 500 mg PO BID PRN (Reason: Pain) Victoza 2-Griffin 0.6 mg/0.1 mL (18 mg/3 mL) Pen Injector 1.2 mg SUBCUT QAM lidocaine [Lidoderm] 5 % adhesive patch,medicated 1 patch transdermal DAILY Discontinued ibuprofen 200 mg Tablet 200 - 400 mg PO TID PRN (Reason: Pain) Discharge Orders: Discharge Order (Routine); Ordered 07/29/22 Ordered By: Art Richardson Admission Data Admit Date/Time: 07/26/22 09:47 Attending Provider: Art Richardson Admit Provider: Art Richardson Primary Care Provider: Camilo Black Other Providers: Madeline Madrid ; Monika Talavera I.
[2022-07-29] MEDS: oxyCODONE HCL IR 5 MG TAB (IMMEDIATE RELEASE) PO PRN (10:26)
--- NOTE | 2022-07-29 11:05 | Hospitalist Progress Note ---
Date of Service July 29, 2022 Assessment & Plan (1) Neurogenic claudication due to lumbar spinal stenosis: Plan: 62yo F with a PMH of type 2 diabetes, anxiety, GERD, hyperlipidemia who is POD#0 s/p L5-S1 decompression and fusion by Dr. Richardson. POD#3 s/p L5-S1 decompression and fusion by Dr. Richardson. Hb is stable in 10s (pre-op hgb 12.7) Post anemia likely from blood loss + dilutional Continue pain regimen Stable for discharge (2) Diabetes mellitus, type 2: Plan: A1c 5.7 in Jul 2022 Continue home antidiabetics (3) Sinus tachycardia: (4) Hypertension: Plan: Controlled Continue home regimen (5) Hyperlipidemia: Plan: Continue simvastatin (6) Anxiety: Plan: Continue Fluoxetine (7) GERD (gastroesophageal reflux disease): Plan: Continue PPI august Admission and Anticipated Discharge Date Admission Date: July 26, 2022 Subjective Patient seen and examined. Patient reports pain at surgical site is well controlled Denied any other complaints Physical Exam Constitutional: + well hydrated; no acute distress Eyes: PERRL, conjunctivae normal, anicteric sclerae ENMT: external ear and nose normal, oropharynx normal Respiratory: normal respiratory effort, lungs clear to auscultation Cardiovascular: Rate/Rhythm: regular rate and regular rhythm S1 S2 Gastrointestinal (Abdomen): normal bowel sounds, soft, nontender, no hepatosplenomegaly Musculoskeletal: Clean dressing over surgical site Neurologic: PERRL, EOMI, accommodation nl, no face palsy, no dysarthria Psychiatric: A+Ox3, euthymic affect Results & Data Results & Data ([facility]) Vital Signs (Past 12 Hours) Vital Signs Temp Pulse Pulse Resp BP Pulse Ox O2 Del Method 07/29/22 07:47 36.5 C 67 20 130/87 96 Room Air 07/28/22 23:18 36.8 C 74 18 125/71 96 Room Air
== END 2022-07-29 11:18 | disposition home or self-care (01) | DRG 454 ==
LOC: ASU 06:08 → PACUINP 09:47 → 3W 12:50